=== PATIENT | female | born 1980 | race African-American/Black ===

== ENCOUNTER 2018-05-28 15:41 | Emergency (ER) | payer MEDICAID ==
[~2018-05-28] VITALS: Ht 149.9 cm; Wt 73.0 kg
[2018-05-28 17:15] LABS: CLARITY URINE CLEAR (CLEAR); COLOR URINE YELLOW (YELLOW); KETONES URINE NEGATIVE (NEGATIVE); LEUKOCYTE ESTERASE URINE 3+ (NEGATIVE); NITRITE URINE NEGATIVE (NEGATIVE); OCCULT BLOOD URINE NEGATIVE (NEGATIVE); PH URINE 6.5 (4.5-8.0); PROTEIN URINE NEGATIVE (NEGATIVE); SPECIFIC GRAVITY URINE 1.004 (1.005-1.030); UROBILINOGEN URINE 0.2 E.U./dL (0.2-1.0)
[2018-05-28] MEDS ORDERED: KETOROLAC 30MG/ML VIAL IV STA (21:58)
[2018-05-28] MEDS ORDERED: ONDANSETRON HCL 4MG/2ML INJ IV STA (21:58)
[2018-05-28] MEDS ORDERED: SODIUM CHLORIDE 0.9% 1,000 ML IV ONE (21:58)
[2018-05-28] MEDS ORDERED: MORPHINE SULFATE 10 MG/ML CPJ IV ONE (22:00)
[2018-05-28 22:42] LABS: EOSINOPHILS % 0.9 % (0.0-5.0); HEMATOCRIT. 43.4 % (36.0-48.0); HEMOGLOBIN. 14.8 g/dL (12.0-16.0); LYMPHOCYTES % 26.4 % (20.0-50.0); MEAN CORPUSCULAR HEMOGLOBIN 30.4 pg (28.0-32.0); MEAN PLATELET VOLUME 8.6 fl (7.4-10.4); MONOCYTES % 5.6 % (2.0-8.0); NEUTROPHILS % 66.1 % (40.0-76.0); PLATELET 295 x1000/uL (130-400); RED BLOOD CELL COUNT 4.87 mill/uL (4.2-5.4); RED CELL DISTRIBUTION WIDTH 12.7 % (11.6-14.6)
[2018-05-28 22:45] LABS: CHLORIDE 100 mEq/L (98-107)
[2018-05-28 22:46] LABS: HCG SCREEN NEGATIVE
[2018-05-28 22:47] LABS: PARTIAL THROMBOPLASTIN TIME 31.4 sec (23.4-31.0)
[2018-05-29 00:30] VITALS: BP 113/65
== END 2018-05-29 00:32 | disposition home or self-care (01) ==
LOC: ER 15:41
DX: N39.0 Urinary tract infection, site not specified (principal); R10.9 Unspecified abdominal pain; Z88.0 Allergy status to penicillin
CPT/HCPCS: 36415; 74176; 80053; 81003; 81025; 83605; 83690; 83880; 84484; 84703; 85025; 85610; 85730; 87040; 87086; 96374; 96375; 99284; J1885; J2270; J2405; J7030

== ENCOUNTER 2018-10-06 14:10 | Inpatient (IN) | payer MEDICAID ==
[~2018-10-06] VITALS: Ht 304.8 cm; Wt 61.2 kg
[2018-10-06] MEDS ORDERED: SODIUM CHLORIDE 0.9% 1,000 ML IV ONE (16:21)
[2018-10-06 16:53] LABS: BASOPHILS % 0.8 % (0.0-2.0); EOSINOPHILS % 1.2 % (0.0-5.0); HEMATOCRIT. 45.1 % (36.0-48.0); HEMOGLOBIN. 15.3 g/dL (12.0-16.0); MEAN CORPUSCULAR VOLUME 88.3 fL (81.0-99.0); MEAN PLATELET VOLUME 8.5 fl (7.4-10.4); MONOCYTES % 5.8 % (2.0-8.0); NEUTROPHILS % 68.2 % (40.0-76.0); PLATELET 271 x1000/uL (130-400); RED CELL DISTRIBUTION WIDTH 13.1 % (11.6-14.6)
[2018-10-06 16:57] LABS: CHLORIDE 106 mEq/L (98-107)
[2018-10-06 16:59] LABS: PARTIAL THROMBOPLASTIN TIME 29.9 sec (23.4-31.0); PROTHROMBIN TIME 10.1 sec (9.6-11.0)
[2018-10-06 17:13] LABS: HCG SCREEN NEGATIVE
[2018-10-06] MEDS ORDERED: GUAIFENESIN 200MG/10ML SUGAR FREE UDC PO PRN (18:45)
[2018-10-06] MEDS ORDERED: DIPHENHYDRAMINE 50MG/ML VIAL IV PRN (18:45)
[2018-10-06] MEDS ORDERED: IPRATROPIUM/ALBUTEROL 0.5-3(2.5)MG/3ML NEB INH PRN (18:45)
[2018-10-06] MEDS ORDERED: MAGNESIUM/ALUMINUM HYDROXIDE/SIMETHICONE 30ML UDC PO PRN (18:45)
[2018-10-06] MEDS ORDERED: ONDANSETRON HCL 4MG/2ML INJ IV PRN (18:45)
[2018-10-06] MEDS ORDERED: CLONIDINE 0.1MG TABLET PO PRN (18:45)
[2018-10-06] MEDS ORDERED: DOCUSATE SODIUM 100MG CAPSULE PO PRN (18:45)
[2018-10-06 19:19] LABS: PHOSPHORUS 2.7 mg/dL (2.5-4.9)
[2018-10-06 19:44] LABS: HEPATITIS B SURFACE ANTIGEN NEGATIVE
[2018-10-06 20:14] LABS: HEPATITIS A AB IGM NEGATIVE (NEGATIVE)
[2018-10-07] VITALS: BP 119/76
[2018-10-07 04:00] VITALS: BP 103/67
[2018-10-07 06:24] LABS: BASOPHILS % 1.1 % (0.0-2.0); CHLORIDE 109 mEq/L (98-107); EOSINOPHILS % 1.6 % (0.0-5.0); HEMATOCRIT. 38.2 % (36.0-48.0); LYMPHOCYTES % 29.6 % (20.0-50.0); MEAN CORPUSCULAR VOLUME 88.5 fL (81.0-99.0); MONOCYTES % 6.6 % (2.0-8.0); NEUTROPHILS % 61.1 % (40.0-76.0); PLATELET 243 x1000/uL (130-400); RED BLOOD CELL COUNT 4.32 mill/uL (4.2-5.4); RED CELL DISTRIBUTION WIDTH 12.8 % (11.6-14.6)
[2018-10-07 06:59] LABS: HDL CHOLESTEROL 40 mg/dL (40-59); LDL CHOLESTEROL 135 mg/dL (5-100)
[2018-10-07 08:00] VITALS: BP 101/69
[2018-10-07] MEDS: ENOXAPARIN 40MG/0.4ML SYR SUBCUT SCH (08:28)
[2018-10-07] MEDS ORDERED: DIAZEPAM 5 MG/ML 2ML CPJ IV NR ×2 (10:41→11:00)
[2018-10-07] MEDS ORDERED: MIDAZOLAM HCL 5 MG/5 ML VIAL ONE (11:11)
[2018-10-07] MEDS ORDERED: FENTANYL CITRATE/PF 50MCG/ML 2ML VIAL ONE (11:12)
[2018-10-07 11:31] VITALS: BP 122/80
[2018-10-07] MEDS ORDERED: MIDAZOLAM HCL 5 MG/5 ML VIAL IV PRN (11:32)
[2018-10-07] MEDS ORDERED: FENTANYL CITRATE/PF 50MCG/ML 2ML VIAL IV PRN (11:33)
[2018-10-07] MEDS: DEXT 5%/0.9% NACL KCL 20MEQ/L 1,000 ML IV SCH ×2 (12:24→22:36)
[2018-10-07] MEDS ORDERED: BACTERIOSTATIC SODIUM CHLORIDE 0.9% 30ML VIAL IJ ONE (13:23)
[2018-10-07] MEDS ORDERED: SIMETHICONE 40 MG/0.6 ML 30ML ONE (13:23)
[2018-10-07 16:00] VITALS: BP 95/66
[2018-10-07 20:00] VITALS: BP 105/68
[2018-10-08] VITALS: BP_SYST 105; BP_SYST 109; BP_DIAS 72; BP_DIAS 77
[2018-10-08 04:00] VITALS: BP 92/59
[2018-10-08 04:15] LABS: HIV SCREEN 4G Non Reactive (Non Reactive)
[2018-10-08] MEDS: DEXT 5%/0.9% NACL KCL 20MEQ/L 1,000 ML IV SCH (05:40)
[2018-10-08 08:00] VITALS: BP 99/65
[2018-10-08] MEDS: ENOXAPARIN 40MG/0.4ML SYR SUBCUT SCH (08:28)
[2018-10-08 11:09] VITALS: BP 105/66
[2018-10-08 11:59] VITALS: BP 105/66
== END 2018-10-08 12:39 | disposition home or self-care (01) | DRG 241 ==
LOC: ER 14:10 → 6EST 18:32 → EDBEDREQ 18:36 → ENRESERV 22:28
PROVIDERS: ADMIT Internal Medicine; ATTEND Internal Medicine
PROC: 0DB68ZX Excision of Stomach, Via Natural or Artificial Opening Endoscopic, Diagnostic (ICD-10-PCS; principal; 2018-10-07)
DX: K29.70 Gastritis, unspecified, without bleeding (principal); R07.0 Pain in throat; Z88.0 Allergy status to penicillin
CPT/HCPCS: 36415; 70490; 71045; 80061; 83036; 83735; 84100; 84443; 84484; 84703; 86705; 86709; 86803; 87340; 87389; 88305; 88312; 88313; 93005; 96360; 96361; 99285; J1650; J2250; J3010; J3490; J7030

== ENCOUNTER 2024-08-14 18:06 | Emergency (ER) | payer MEDICAID ==
[~2024-08-14] VITALS: Ht 144.8 cm; Wt 65.3 kg
[2024-08-14 18:19] VITALS: O2SAT 98
[2024-08-14] MEDS: ACETAMINOPHEN 500MG TABLET PO NR (19:33)
[2024-08-14] MEDS ORDERED: ISOP30DR11 RIGHT EAR (19:55)
[2024-08-14] MEDS ORDERED: ACET-2708 MT (19:55)
[2024-08-14] MEDS ORDERED: OXYM30SP26 BOTHNSTRLS (19:55)
[2024-08-14 20:22] VITALS: BP 137/87; PULSE 80; RESP 18; TEMP 36.8; O2SAT 99
== END 2024-08-14 20:23 | disposition home or self-care (01) ==
LOC: ER 18:18
DX: H61.21 Impacted cerumen, right ear (principal); R51.9 Headache, unspecified; I10 Essential (primary) hypertension; Z88.0 Allergy status to penicillin; Z79.899 Other long term (current) drug therapy
CPT/HCPCS: 99284; A4606

== ENCOUNTER 2024-10-08 21:37 | Emergency (ER) | payer MEDICAID, OTHER ==
[~2024-10-08] VITALS: Ht 154.9 cm; Wt 70.0 kg
[~2024-10-08 21:37] MED LIST: ACET-2708 MT; ISOP30DR11 RIGHT EAR; OXYM30SP26 BOTHNSTRLS
[2024-10-08 21:49] VITALS: BP 155/92; RESP 16; TEMP 37.4; O2SAT 99
[2024-10-08 21:50] VITALS: PULSE 110; O2SAT 100
[2024-10-08 23:06] LABS: CLARITY URINE CLEAR (CLEAR); COLOR URINE YELLOW (YELLOW); GLUCOSE URINE NEGATIVE (NEGATIVE); KETONES URINE NEGATIVE (NEGATIVE); LEUKOCYTE ESTERASE URINE NEGATIVE (NEGATIVE); NITRITE URINE NEGATIVE (NEGATIVE); OCCULT BLOOD URINE TRACE (NEGATIVE); PH URINE 6.5 (4.5-8.0); PROTEIN URINE NEGATIVE (NEGATIVE); SPECIFIC GRAVITY URINE 1.014 (1.005-1.030); UROBILINOGEN URINE 0.2 E.U./dL (0.2-1.0)
[2024-10-08 23:14] LABS: BACTERIA URINE NONE SEEN; RBC URINE 0-2 /hpf (0-2); SQUAMOUS EPITHELIAL CELL URINE RARE /lpf (RARE/1+); WBC URINE NONE SEEN /hpf (0-2)
[2024-10-08] MEDS: ONDANSETRON 4MG ODT PO STA (23:39)
[2024-10-08] MEDS: KETOROLAC 30MG/ML VIAL IM STA (23:39)
[2024-10-08 23:57] LABS: EOSINOPHILS % 0.6 % (0.0-5.0); HEMATOCRIT. 39.3 % (36.0-48.0); HEMOGLOBIN. 13.5 g/dL (12.0-16.0); MEAN CORPUSCULAR HEMOGLOBIN 30.2 pg (28.0-32.0); MEAN CORPUSCULAR HGB CONC 34.3 g/dL (31.0-37.0); MEAN PLATELET VOLUME 8.9 fl (7.4-10.4); MONOCYTES % 6.5 % (2.0-8.0); NEUTROPHILS % 77.9 % (40.0-76.0); PLATELET 296 x1000/uL (130-400); RED BLOOD CELL COUNT 4.46 mill/uL (4.2-5.4); RED CELL DISTRIBUTION WIDTH 12.6 % (11.6-14.6); WHITE BLOOD COUNT 13.2 x1000/uL (4.5-11.0)
[2024-10-09 00:34] LABS: CHLORIDE 103 mEq/L (98-107); SODIUM 138 mEq/L (136-145)
[2024-10-09 00:35] LABS: CALCIUM 9.7 mg/dL (8.7-10.4); CARBON DIOXIDE 26 mEq/L (21-32)
[2024-10-09 00:40] LABS: CREATININE 0.7 mg/dL (0.6-1.0)
[2024-10-09 00:41] LABS: GLUCOSE 116 mg/dL (70-105); UREA NITROGEN BLOOD 9 mg/dL (9-23)
[2024-10-09 00:42] LABS: ALANINE AMINOTRANSFERASE 44 IU/L (10-49); ALBUMIN 4.3 g/dL (3.2-4.8); ASPARTATE AMINOTRANSFERASE 25 IU/L (<34); PROTEIN TOTAL 7.9 g/dL (6.0-8.3)
[2024-10-09 00:43] LABS: BILIRUBIN DIRECT < 0.1 mg/dL (<=3.0); BILIRUBIN TOTAL 0.3 mg/dL (0.1-1.0)
[2024-10-09 00:57] LABS: HCG SCREEN NEGATIVE
[2024-10-09] MEDS ORDERED: ACET-2708 MT (04:17)
== END 2024-10-09 04:50 | disposition home or self-care (01) ==
LOC: ER 21:37
DX: R10.11 Right upper quadrant pain (principal); R03.0 Elevated blood-pressure reading, without diagnosis of hypertension; Z88.0 Allergy status to penicillin; Z79.899 Other long term (current) drug therapy
CPT/HCPCS: 99285; 74176; 76705; 80076; 80048; 81003; 84703; 83690; 85025; 36415; 93005; 96372; J1885; Q0162

== ENCOUNTER 2025-01-11 17:47 | Emergency (ER) | payer OTHER ==
[~2025-01-11] VITALS: Ht 142.2 cm; Wt 63.3 kg
[2025-01-11 17:54] VITALS: TEMP 36.9; O2SAT 99
[2025-01-11 18:54] LABS: BASOPHILS % 1.2 % (0.0-2.0); EOSINOPHILS % 0.4 % (0.0-5.0); HEMATOCRIT. 40.7 % (36.0-48.0); HEMOGLOBIN. 13.8 g/dL (12.0-16.0); LYMPHOCYTES % 17.2 % (20.0-50.0); MEAN PLATELET VOLUME 9.3 fl (7.4-10.4); MONOCYTES % 5.2 % (2.0-8.0); NEUTROPHILS % 76.0 % (40.0-76.0); PLATELET 269 x1000/uL (130-400); RED BLOOD CELL COUNT 4.55 mill/uL (4.2-5.4); RED CELL DISTRIBUTION WIDTH 12.6 % (11.6-14.6)
[2025-01-11 19:10] LABS: CREATININE 0.7 mg/dL (0.6-1.0); HCG SCREEN NEGATIVE; UREA NITROGEN BLOOD 8 mg/dL (9-23)
[2025-01-11 19:12] LABS: ASPARTATE AMINOTRANSFERASE 23 IU/L (<34); BILIRUBIN DIRECT 0.1 mg/dL (<=3.0); BILIRUBIN TOTAL 0.5 mg/dL (0.1-1.0); PROTEIN TOTAL 8.2 g/dL (6.0-8.3)
[2025-01-11 19:47] LABS: CLARITY URINE CLEAR (CLEAR); COLOR URINE YELLOW (YELLOW); GLUCOSE URINE NEGATIVE (NEGATIVE); KETONES URINE 1+ (NEGATIVE); LEUKOCYTE ESTERASE URINE TRACE (NEGATIVE); NITRITE URINE NEGATIVE (NEGATIVE); OCCULT BLOOD URINE NEGATIVE (NEGATIVE); PH URINE 5.5 (4.5-8.0); PROTEIN URINE NEGATIVE (NEGATIVE); SPECIFIC GRAVITY URINE 1.005 (1.005-1.030); UROBILINOGEN URINE 0.2 E.U./dL (0.2-1.0)
[2025-01-11 20:02] LABS: BACTERIA URINE NONE SEEN; RBC URINE NONE SEEN /hpf (0-2); SQUAMOUS EPITHELIAL CELL URINE RARE /lpf (RARE/1+); WBC URINE 0-2 /hpf (0-2)
[2025-01-11] MEDS: FAMOTIDINE 20MG TABLET PO ONE (20:09)
[2025-01-11] MEDS: KETOROLAC 15MG/ML VIAL IM ONE (20:09)
[2025-01-11] MEDS: MAGNESIUM/ALUMINUM HYDROXIDE/SIMETHICONE 30ML UDC PO ONE (20:09)
[2025-01-11] MEDS ORDERED: FAMO-135 MT (22:29)
[2025-01-11 22:53] VITALS: BP 131/77; PULSE 65; RESP 18; O2SAT 99
== END 2025-01-11 22:54 | disposition home or self-care (01) ==
LOC: ER 18:10
DX: K76.0 Fatty (change of) liver, not elsewhere classified (principal); K29.70 Gastritis, unspecified, without bleeding; Z79.899 Other long term (current) drug therapy; Z88.0 Allergy status to penicillin
CPT/HCPCS: 99285; 76705; 80076; 80048; 81003; 84703; 83690; 85025; 36415; 96372; J1885